=== PATIENT | female | born 1980 | race Caucasian/White ===

== ENCOUNTER → 2016-07-28 | Outpatient (CLI) | payer BC ==
[~2016-07-28] MED LIST: ABILIFY5 MG PO; BACTRIM DS 8001 TAB PO; CALTRATE 600 +1 TAB PO; CIPRO500 MG PO; FERROUS SU325 MG/TAB PO; FLOMAX 0.40.4 MG/CAP PO; FLOMAX0.4 MG PO; KLONOPIN 0.5MG0.5 MG; LORTAB 5/500 501 TAB PO; MVI; PERCOCET 325 MG1 TA2 PO; PERCOCET 5/321 UDTAB PO; PHENERGAN 25 TA25 MG PO; PHENERGAN25 MG RC; PREDNISONE20 MG PO; ULTRAM50 MG PO; [UNRECOGNIZED DRUG - REMARK]
== END ==
LOC: BHSO 10:13
DX: F31.81 Bipolar II disorder (principal)

== ENCOUNTER → 2016-09-08 | Outpatient (CLI) | payer BC | LOC: BHSO 10:28 | DX: F31.81 Bipolar II disorder (principal) ==

== ENCOUNTER → 2016-12-08 | Outpatient (CLI) | payer BC | LOC: BHSO 10:59 | DX: F31.81 Bipolar II disorder (principal) ==

== ENCOUNTER → 2017-01-15 | Outpatient (CLI) | payer BC | LOC: BHSO 08:05 | DX: F31.81 Bipolar II disorder (principal) ==

== ENCOUNTER → 2017-02-19 | Outpatient (CLI) | payer BC | LOC: BHSO 15:37 | DX: F31.81 Bipolar II disorder (principal) ==

== ENCOUNTER → 2017-04-22 | Outpatient (CLI) | payer BC | LOC: BHSO 08:20 | DX: F31.81 Bipolar II disorder (principal) ==

== ENCOUNTER → 2017-05-06 | Outpatient (CLI) | payer BC | LOC: BHSO 08:05 | DX: F31.81 Bipolar II disorder (principal) ==

== ENCOUNTER → 2017-07-08 | Outpatient (CLI) | payer BC | LOC: BHSO 08:18 | DX: F31.81 Bipolar II disorder (principal) | CPT/HCPCS: G0463 ==

== ENCOUNTER → 2017-12-21 | Outpatient (CLI) | payer BC | LOC: BHSO 08:04 | DX: F31.81 Bipolar II disorder (principal) ==

== ENCOUNTER → 2018-06-15 | Outpatient (CLI) | payer BC | LOC: BHSO 11:11 | DX: F31.81 Bipolar II disorder (principal) | CPT/HCPCS: G0463 ==

== ENCOUNTER → 2018-09-20 | Outpatient (CLI) | payer BC | LOC: BHSO 10:02 | DX: F31.4 Bipolar disorder, current episode depressed, severe, without psychotic features (principal) | CPT/HCPCS: G0463 ==

== ENCOUNTER → 2019-06-02 | Outpatient (CLI) | payer BC | LOC: BHSO 15:42 | DX: F31.81 Bipolar II disorder (principal) | CPT/HCPCS: G0463 ==

== ENCOUNTER → 2021-04-19 | Outpatient (CLI) | payer BC | LOC: MC.RAD 03-22 07:15 | DX: Z12.31 Encounter for screening mammogram for malignant neoplasm of breast (principal); N64.89 Other specified disorders of breast ==

== ENCOUNTER → 2021-04-26 | Outpatient (CLI) | payer BC | LOC: MC.RAD 08:00 | DX: N64.89 Other specified disorders of breast (principal) ==

== ENCOUNTER → 2021-05-08 | Outpatient (CLI) | payer BC | LOC: MC.RAD 07:59 | DX: R92.1 Mammographic calcification found on diagnostic imaging of breast (principal) ==

== ENCOUNTER → 2021-06-05 | Outpatient (CLI) | payer BC ==
[~2021-06-05] MED LIST changes: +PRISTIQ 50 MG T50 MG PO; +SEROQUEL 1100 MG/TAB PO; +ULTRAM 50MG TAB50 MG PO
== END ==
LOC: MC.RAD 12:52
DX: N62 Hypertrophy of breast (principal)
CPT/HCPCS: C1769

== ENCOUNTER 2021-06-11 10:29 | Day surgery (SDC) | payer BC ==
[~2021-06-11] VITALS: Ht 162.6 cm; Wt 69.4 kg
[~2021-06-11 10:29] MED LIST changes: -PRISTIQ 50 MG T50 MG PO; -SEROQUEL 1100 MG/TAB PO; -ULTRAM 50MG TAB50 MG PO
[2021-06-11] MEDS ORDERED: SEROQUEL 1100 MG/TAB PO (11:01)
[2021-06-11 11:02] VITALS: BP 114/82; PULSE 66; TEMP 97.4
[2021-06-11] MEDS ORDERED: PRISTIQ 50 MG T50 MG PO (11:02)
[2021-06-11 13:29] VITALS: BP 112/61; PULSE 51; TEMP 97
--- NOTE | 2021-06-11 13:29 | NUR ---
The patient arrived back to [facility] from the operating room at this time. Post operative vital signs were started at this time. The patient has a medipore dressing to her left breast that appears clean, dry and intact. The reports increased pain in her left breast and will be given a PRN dose of oral pain medication. The patient's is at her bedside at this time. The patient agrees to try some crackers and water with her pain medication.
[2021-06-11] MEDS ORDERED: ULTRAM 50MG TAB50 MG PO (13:31)
--- NOTE | 2021-06-11 13:40 | NUR ---
The patient was given a PRN dose of Tramadol at this time. She appears to be tolerating the water and crackers well. remains at her bedside. Will continue to monitor the patient.
[2021-06-11 13:45] VITALS: BP 145/85; PULSE 53
[2021-06-11 14:00] VITALS: BP 143/62; PULSE 46
--- NOTE | 2021-06-11 14:00 | NUR ---
The patient's IV was INT'd and she was assisted to the bathroom where she voided without difficulty. The patient was given an ice pack for her left breast at this time. Call light is within reach. Will continue to monitor the patient.
[2021-06-11 14:15] VITALS: BP 124/73; PULSE 49
--- NOTE | 2021-06-11 14:15 | NUR ---
The patient appears to be resting comfortably on the cart at this time. Vital signs appear stable. Will continue to monitor the patient.
--- NOTE | 2021-06-11 14:35 | NUR ---
The patient is dressed and ready to review her discharge instuctions. Discharge instructions were reviewed iwth the patient and her at this time. They both verbalized understanding and have no question for the nurse at this time. The patient's IV was removed and a pressure dressing was applied to the site.
--- NOTE | 2021-06-11 14:42 | NUR ---
The patient was escorted out via wheelchair to a private vehicle by TAY Aguila. The patient's belongings and discharge paperwork were sent with her. The patient's is present to drive her home.
== END 2021-06-11 14:42 | disposition home or self-care (01) ==
LOC: SDCO 10:29
DX: N60.92 Unspecified benign mammary dysplasia of left breast (principal); F25.9 Schizoaffective disorder, unspecified; F41.9 Anxiety disorder, unspecified; Z79.899 Other long term (current) drug therapy
CPT/HCPCS: A4648; J2405; J2704; J3010; J7120

== ENCOUNTER → 2022-05-01 | Outpatient (CLI) | payer BC ==
[~2022-05-01] MED LIST changes: +PRISTIQ 50 MG T50 MG PO; +SEROQUEL 1100 MG/TAB PO; +ULTRAM 50MG TAB50 MG PO
== END ==
LOC: MC.RAD 06:59
DX: Z12.31 Encounter for screening mammogram for malignant neoplasm of breast (principal)

== ENCOUNTER → 2023-05-29 | Outpatient (CLI) | payer BC | LOC: CANSCHCLI → MC.RAD 07:04 | DX: Z12.31 Encounter for screening mammogram for malignant neoplasm of breast (principal) ==

== ENCOUNTER → 2024-06-01 | Outpatient (CLI) | payer OTHER | LOC: MC.RAD 06:52 | DX: Z12.31 Encounter for screening mammogram for malignant neoplasm of breast (principal); Z87.898 Personal history of other specified conditions ==